=== PATIENT | male | born 2000 | race Caucasian/White ===

== ENCOUNTER 2022-07-24 00:57 | Inpatient (IN) | payer OTHER ==
[~2022-07-24] VITALS: Ht 185.4 cm; Wt 71.5 kg
[2022-07-24 01:29] LABS: HEMATOCRIT 47.9 % (42.0-52.0); HEMOGLOBIN 16.7 g/dl (13.5-17.5); MEAN CORPUSCULAR HEMOGLOBIN 31.5 pg (27.0-33.0); MEAN CORPUSCULAR HGB CONC 34.9 g/dl (32.0-36.5); MEAN CORPUSCULAR VOLUME 90.4 fl (80.0-96.0); PLATELET COUNT, AUTOMATED 270 10^3/uL (150-450); WHITE BLOOD COUNT 12.8 10^3/uL (4.0-10.0)
[2022-07-24 01:47] LABS: ETHYL ALCOHOL (ETHANOL) 0.079 % (0.000-0.010)
[2022-07-24 01:48] LABS: ACETAMINOPHEN LEVEL < 2.0 UG/ML (10.0-20.0)
[2022-07-24 01:49] LABS: ALBUMIN 4.5 G/DL (3.2-5.2); ALKALINE PHOSPHATASE 67 U/L (46-116); ALT/SGPT 34 U/L (7.0-40); AST/SGOT 17 U/L (<34); BILIRUBIN,DIRECT 0.2 MG/DL (<0.4); BILIRUBIN,TOTAL 0.6 MG/DL (0.3-1.2); BLOOD UREA NITROGEN 10 MG/DL (9-23); CALCIUM LEVEL 9.2 MG/DL (8.5-10.1); CARBON DIOXIDE LEVEL 23 MMOL/L (20-31); CHLORIDE LEVEL 106 MMOL/L (98-107); GLUCOSE, FASTING 102 MG/DL (60-100); POTASSIUM SERUM 3.8 MMOL/L (3.5-5.1); SALICYLATE LEVEL < 3.0 MG/DL (<30); SODIUM LEVEL 139 MMOL/L (136-145); TOTAL PROTEIN 7.1 G/DL (5.7-8.2)
[2022-07-24 01:51] LABS: THYROID STIMULATING HORMONE 0.981 uIU/ML (0.48-4.17)
[2022-07-24 01:57] LABS: AMPHETAMINES LEVEL URINE NEGATIVE (NEGATIVE); BARBITURATES URINE NEGATIVE (NEGATIVE); BENZODIAZEPINES URINE NEGATIVE (NEGATIVE); CANNABINOIDS URINE POSITIVE (NEGATIVE); COCAINE METABOLITE URINE NEGATIVE (NEGATIVE); METHADONE URINE NEGATIVE (NEGATIVE); OPIATES URINE NEGATIVE (NEGATIVE); PHENCYCLIDINE URINE NEGATIVE (NEGATIVE)
[2022-07-24] MEDS ORDERED: diphenhydrAMINE 25MG CAP PO PRN (13:25)
[2022-07-24] MEDS ORDERED: MAALOX 30 ML SUSP *UDC PO PRN (13:25)
[2022-07-24] MEDS ORDERED: IBUPROFEN 400MG TAB PO PRN (13:25)
[2022-07-24] MEDS ORDERED: NICOTINE 21MG/24HR 1 EA TRANSDERMAL TD PRN (13:25)
[2022-07-24] MEDS ORDERED: traZODone 50 MG TAB PO PRN (13:25)
[2022-07-24] MEDS ORDERED: MOM 30ML SUSPENSION UDC PO PRN (13:25)
[2022-07-24] MEDS ORDERED: OLANZapine 5 MG TAB PO PRN (13:25)
[2022-07-24] MEDS ORDERED: ACETAMINOPHEN TAB 650MG DOSE (2X325MG) PO PRN (13:25)
[2022-07-24] MEDS ORDERED: HOME MED LIST COMPLETE! XX SCH (14:10)
[2022-07-24 15:48] VITALS: BP 133/70; TEMP 97.8
[2022-07-25 06:03] VITALS: BP 121/72; TEMP 98.3; O2SAT 99
[2022-07-25 16:39] VITALS: BP 122/77; TEMP 97.7; O2SAT 100
[2022-07-26 06:46] VITALS: BP 125/64; TEMP 97.2; O2SAT 98
[2022-07-26 16:12] VITALS: BP 104/67; TEMP 97.7; O2SAT 98
[2022-07-27 06:23] VITALS: BP 140/65; TEMP 97.9; O2SAT 100
[2022-07-27] MEDS ORDERED: BENA25CA4 PO (09:34)
== END 2022-07-27 11:30 | disposition home or self-care (01) | DRG 754 ==
LOC: M ED 00:57 → M ED INP 13:21 → M PSY 15:48
PROVIDERS: ADMIT Psychiatry & Neurology Psychiatry; ATTEND Student in an Organized Health Care Education/Training Program
DX: F32.9 Major depressive disorder, single episode, unspecified (principal); R45.851 Suicidal ideations; F17.200 Nicotine dependence, unspecified, uncomplicated; F12.90 Cannabis use, unspecified, uncomplicated

== ENCOUNTER 2023-08-15 09:10 | Inpatient (IN) | payer MEDICAID, OTHER ==
[~2023-08-15] VITALS: Ht 182.9 cm; Wt 88.6 kg
[~2023-08-15 09:10] MED LIST: BENA25CA4 PO
[2023-08-15] MEDS: NICOTINE POLACRILEX 2 MG GUM PO ONE (09:42)
[2023-08-15 09:49] LABS: HEMATOCRIT 43.5 % (42.0-52.0); HEMOGLOBIN 15.7 g/dl (13.5-17.5); MEAN CORPUSCULAR HGB CONC 36.1 g/dl (32.0-36.5); PLATELET COUNT, AUTOMATED 248 10^3/uL (150-450); RED BLOOD COUNT 5.06 10^6/uL (4.30-6.10); WHITE BLOOD COUNT 10.1 10^3/uL (4.0-10.0)
[2023-08-15] MEDS ORDERED: HOME MED LIST COMPLETE! XX SCH (09:50)
[2023-08-15 10:15] LABS: AMPHETAMINES LEVEL URINE NEGATIVE (NEGATIVE); BARBITURATES URINE NEGATIVE (NEGATIVE); BENZODIAZEPINES URINE NEGATIVE (NEGATIVE)
[2023-08-15 10:16] LABS: COCAINE METABOLITE URINE NEGATIVE (NEGATIVE); METHADONE URINE NEGATIVE (NEGATIVE); OPIATES URINE NEGATIVE (NEGATIVE); PHENCYCLIDINE URINE NEGATIVE (NEGATIVE)
[2023-08-15 10:17] LABS: ETHYL ALCOHOL (ETHANOL) 0.004 % (0.000-0.010)
[2023-08-15 10:18] LABS: CANNABINOIDS URINE POSITIVE (NEGATIVE); SALICYLATE LEVEL < 3.0 MG/DL (<30)
[2023-08-15 10:19] LABS: ALBUMIN 4.2 G/DL (3.2-5.2); ALKALINE PHOSPHATASE 77 U/L (46-116); ALT/SGPT 54 U/L (7.0-40); AST/SGOT 23 U/L (<34); BILIRUBIN,DIRECT 0.3 MG/DL (<0.4); BILIRUBIN,TOTAL 0.8 MG/DL (0.3-1.2); BLOOD UREA NITROGEN 9 MG/DL (9-23); CALCIUM LEVEL 9.4 MG/DL (8.5-10.1); CARBON DIOXIDE LEVEL 25 MMOL/L (20-31); CHLORIDE LEVEL 106 MMOL/L (98-107); CREATININE FOR GFR 0.85 MG/DL (0.70-1.30); GLOMERULAR FILTRATION RATE > 60.0 (>60); GLUCOSE, FASTING 96 MG/DL (60-100); POTASSIUM SERUM 3.2 MMOL/L (3.5-5.1); SODIUM LEVEL 137 MMOL/L (136-145); TOTAL PROTEIN 6.7 G/DL (5.7-8.2)
[2023-08-15] MEDS: POTASSIUM CHLORIDE 10MEQ SR TABLET PO ONE (14:36)
[2023-08-15] MEDS: NICOTINE POLACRILEX 2 MG GUM PO PRN (14:49)
[2023-08-15] MEDS: LORazepam 2 MG TAB PO STA (17:34)
[2023-08-16] MEDS: MULTIVITAMINS/MINERALS THERAP 1 TAB PO SCH (09:00)
[2023-08-16] MEDS: THIAMINE 100 MG TAB PO SCH (09:00)
[2023-08-16] MEDS: FOLIC ACID 1MG TAB PO SCH (09:00)
[2023-08-16] MEDS ORDERED: LORazepam 2 MG TAB PO PRN (13:15)
[2023-08-16] MEDS ORDERED: MAALOX 30 ML SUSP *UDC PO PRN (13:15)
[2023-08-16] MEDS ORDERED: IBUPROFEN 400MG TAB PO PRN (13:15)
[2023-08-16 15:04] VITALS: BP 155/87; TEMP 98; O2SAT 97
[2023-08-16] MEDS: NICOTINE 14 MG/24 HR TRANSDERMAL TD SCH (17:22)
[2023-08-16] MEDS: traZODone 50 MG TAB PO PRN (22:41)
[2023-08-16 22:50] VITALS: BP 142/81
[2023-08-17 06:35] VITALS: BP 134/74
[2023-08-17 06:39] VITALS: BP 134/74; TEMP 97.5; O2SAT 99
[2023-08-17 14:20] VITALS: BP 132/71
[2023-08-17 14:59] VITALS: BP 132/71; TEMP 97.8; O2SAT 96
[2023-08-17] MEDS: NICOTINE POLACRILEX 2 MG GUM PO PRN (19:50)
[2023-08-17] MEDS: OLANZapine 5 MG TAB PO SCH (20:55)
[2023-08-18 06:23] VITALS: BP 111/59; TEMP 97.3; O2SAT 97
[2023-08-18] MEDS: OLANZapine ORAL DISINTEGRATING TAB 5MG PO PRN (12:51)
[2023-08-19 06:11] VITALS: BP 128/82; TEMP 97.4; O2SAT 96
[2023-08-19] MEDS: ACETAMINOPHEN TAB 650MG DOSE (2X325MG) PO PRN (17:25)
[2023-08-19] MEDS: MOM 30ML SUSPENSION UDC PO PRN (18:03)
[2023-08-20 06:00] VITALS: BP 117/60; TEMP 97.5; O2SAT 95
[2023-08-20 16:16] VITALS: BP 132/76; TEMP 97.7; O2SAT 98
[2023-08-21 05:52] VITALS: BP 125/70; TEMP 97.9; O2SAT 97
[2023-08-21 18:50] VITALS: BP 140/83; TEMP 97.3
[2023-08-22] MEDS: OLANZapine 10 MG TAB PO SCH (20:08)
[2023-08-22] MEDS: diphenhydrAMINE 25MG CAP PO PRN (22:19)
[2023-08-23 06:21] VITALS: BP 132/82; TEMP 97.8; O2SAT 97
[2023-08-23 18:30] VITALS: BP 129/87; TEMP 97.6
[2023-08-24 06:27] VITALS: BP 118/66; TEMP 97.7; O2SAT 94
[2023-08-24 15:39] VITALS: BP 132/85; TEMP 97.8; O2SAT 95
[2023-08-25 06:12] VITALS: BP 112/80; TEMP 97.3; O2SAT 96
[2023-08-25] MEDS ORDERED: Multivitamins PO (07:43)
[2023-08-25] MEDS ORDERED: OLAN20TA53 PO (07:43)
[2023-08-25] MEDS ORDERED: NICO2GUM PO (07:43)
[2023-08-25] MEDS ORDERED: TRAZ-252 PO (07:43)
[2023-08-25] MEDS: OLANZapine 10 MG TAB PO ONE (08:36)
== END 2023-08-25 11:20 | disposition home or self-care (01) | DRG 750 ==
LOC: M ED 09:10 → M ED INP 08-16 13:13 → M PSY 08-16 15:07
PROVIDERS: ADMIT Student in an Organized Health Care Education/Training Program; ATTEND Student in an Organized Health Care Education/Training Program
DX: F20.9 Schizophrenia, unspecified (principal); F43.10 Post-traumatic stress disorder, unspecified; F41.9 Anxiety disorder, unspecified; F90.9 Attention-deficit hyperactivity disorder, unspecified type; F32.A Depression, unspecified; F42.9 Obsessive-compulsive disorder, unspecified; F17.210 Nicotine dependence, cigarettes, uncomplicated; Z56.0 Unemployment, unspecified; Z71.6 Tobacco abuse counseling; Z81.8 Family history of other mental and behavioral disorders